=== PATIENT | male | born 1975 | race Caucasian/White ===

== ENCOUNTER 2018-10-04 19:06 | Emergency (ER) | payer BC ==
[~2018-10-04] VITALS: Ht 190.5 cm; Wt 119.7 kg
[2018-10-04 19:53] LABS: BASOPHIL % 0.6 % (0-2); PLATELET COUNT 237 x10^3mcL (130-400); RED CELL DISTRIBUTION WIDTH 12.9 % (11.5-14.5)
[2018-10-04 20:08] LABS: CARBON DIOXIDE 26.9 mmol/L (21-32); CREATININE SERUM 1.4 mg/dL (0.7-1.3)
[2018-10-04 20:15] LABS: BILIRUBIN TOTAL 0.92 mg/dL (0.20-1.00); TOTAL PROTEIN, SERUM 7.6 g/dL (6.4-8.2)
[2018-10-04 22:01] VITALS: BP 108/64
== END 2018-10-04 22:01 | disposition home or self-care (01) ==
LOC: ED 19:06
PROVIDERS: Specialist
DX: R07.89 Other chest pain (principal); M54.12 Radiculopathy, cervical region; R20.0 Anesthesia of skin; Z98.890 Other specified postprocedural states
CPT/HCPCS: 36415; 83880; Q0092